=== PATIENT | female | born 1995 | race Caucasian/White ===

== ENCOUNTER 2017-08-26 20:40 | Emergency (ER) | payer OTHER ==
[~2017-08-26] VITALS: Ht 160 cm; Wt 51.3 kg
[2017-08-26 20:45] VITALS: BP 122/87
== END 2017-08-26 21:09 | disposition home or self-care (01) ==
LOC: ED 21:03
DX: G43.909 Migraine, unspecified, not intractable, without status migrainosus (principal); Z76.0 Encounter for issue of repeat prescription
CPT/HCPCS: 99281